=== PATIENT | male | born 1975 | race Caucasian/White ===

== ENCOUNTER 2018-11-26 07:35 | Emergency (ER) | payer OTHER ==
[~2018-11-26] VITALS: Ht 172.7 cm; Wt 90.3 kg
== END 2018-11-26 12:24 | disposition home or self-care (01) ==
LOC: ER 07:35
DX: K40.90 Unilateral inguinal hernia, without obstruction or gangrene, not specified as recurrent (principal)

== ENCOUNTER 2022-10-07 13:45 | Emergency (ER) | payer OTHER | END 2022-10-07 16:46 | disposition home or self-care (01) | LOC: EMR PED 13:45 → ER 13:56 → EMR PED 13:56 → ER 16:46 | DX: M54.2 Cervicalgia (principal); V43.52XA Car driver injured in collision with other type car in traffic accident, initial encounter; Y93.9 Activity, unspecified; Y92.413 State road as the place of occurrence of the external cause ==